=== PATIENT | female | born 1960 ===

== ENCOUNTER → 2022-02-02 | Outpatient (CLI) | payer OTHER | END | disposition home or self-care (01) | LOC: TOM 11:01 | PROVIDERS: ATTEND Neurological Surgery | DX: M96.1 Postlaminectomy syndrome, not elsewhere classified (principal); M46.1 Sacroiliitis, not elsewhere classified; M54.50 Low back pain, unspecified; M48.061 Spinal stenosis, lumbar region without neurogenic claudication ==